=== PATIENT | male | born 1985 | race Caucasian/White ===

== ENCOUNTER 2019-07-29 02:00 | Outpatient (CLI) | payer OTHER, SELFPAY ==
--- NOTE | 2019-07-29 15:47 | DI.RAD_ITS ---
EXAM: XR FOOT LT COMPLETE INDICATION: [place] AUTH #[id number] LT FOOT PAIN M79.672, WEIGHT BEARING LT FOOT XRAY. COMPARISON: No exams were available for comparison TECHNIQUE: 2D digital imaging was performed. FINDINGS: Plantar arch is well maintained. There is minimal spurring at the Achilles insertion on the calcaneu s. There is an accessory navicular. The joint spaces are well maintained. IMPRESSION: No acute abnormality.
== END 2019-07-29 02:20 ==
PROVIDERS: Visit Provider Podiatrist Foot & Ankle Surgery
DX: M79.672 Pain in left foot (principal); M77.32 Calcaneal spur, left foot
CPT/HCPCS: 73630

== ENCOUNTER 2022-05-14 16:40 | Emergency (ER) | payer OTHER, SELFPAY ==
[2022-05-14 16:44] VITALS: BP 132/80; PULSE 86; RESP 20; TEMP 37; O2SAT 99
[2022-05-14 17:50] LABS: Abs Immature Grans 0.02 10^3/uL (0.0-0.06); Absolute Basophil Count 0.04 10^3/uL (0.0-0.2); Absolute Eosinophil Count 0.13 10^3/uL (0.0-0.7); Absolute Lymphocyte Count 2.71 10^3/uL (1.2-3.4); Absolute Monocyte Count 0.62 10^3/uL (0.1-0.8); Absolute Neutrophil Count 5.01 10^3/uL (1.2-6.7); Basophils % 0.5; Eosinophils % 1.5; HCT 41.4 % (40.0-50.0); Immature Grans % 0.2; Lymphocytes % 31.8; MCH 29.4 pg (27.0-33.0); MCHC 33.8 % (32.0-36.0); MCV 87 fL (80-95); MPV 11.7 fL (8.0-11.0); Monocytes % 7.3; Neutrophils % 58.7; Platelet Count 237 10^3/uL (130-400); RBC 4.77 10^6/uL (4.36-5.78); RDW 11.6 % (11.8-14.1); RDW-SD 36.6 fL; WBC 8.53 10^3/uL (4.4-10.8)
[2022-05-14 18:05] LABS: ALT 18 U/L (16-63); AST 17 U/L (15-37); Albumin 4.2 g/dL (3.4-5.0); Alkaline Phosphatase 49 U/L (46-116); BUN 13 mg/dL (7-18); Bilirubin, Total 1.7 mg/dL (0.2-1.0); CREATININE 0.9 mg/dL (0.70-1.30); Calcium 9.2 mg/dL (8.5-10.1); Chloride 102 mmol/L (98-107); Estimated GFR 112.81 (mL/min/1.73m2); Glucose 79 mg/dL (74-106); Potassium 4.1 mmol/L (3.5-5.1); Sodium 137 mmol/L (136-145); Total Protein 8.7 g/dL (6.4-8.2); Uric Acid 4.3 mg/dL (3.5-7.2)
--- NOTE | 2022-05-14 18:14 | ED.GENADUL_ITS ---
Discharge Plan Disposition Patient Disposition: HOME Condition: Stable Discharge Details Clinical Impression: Bilateral plantar fasciitis, Bilateral edema of lower extremity Primary Care Provider: Brayan Garcia ED Provider: Kimani Hill Home Meds and New Rx's Prescriptions: Continued diazepam [Valium] 10 mg tablet 10 mg PO ONCE PRN (Reason: premedication) Qty: 1 0RF Rx Instructions: Take 1 hour prior to procedure. Must have a stud driver tramadol 50 mg tablet 50 mg PO Q6H PRN (Reason: pain) Qty: 10 0RF infliximab [Remicade] 100 MG recon soln IV .Q 6 WEEKS Discharge Instructions Instructions: Plantar Fasciitis (ED), Edema (ED), Plantar Fasciitis Exercises (ED) Additional Instructions: If you develop any new or significant worsening of symptoms please feel free to return to the emergency department for reassessment. Your labs are otherwise nondiagnostic and please consider use of compression stockings along with monitoring sodium intake for your diet. Please follow-up with your primary care provider for further reassessment and testing as needed Referrals: Brayan Garcia [Primary Care Provider] - 1 week (If not if not improving) Discharge Data Discharge Date/Time-TO BE ENTERED AT DEPARTURE: 05/14/22 18:31 Medical Decision Making Patient presenting to the emergency department for chief complaint of bilateral foot pain with occasional swelling to lower extremities. Patient has significant past medical history of Crohn's disease but otherwise denies any other medical history. Patient does state approximately 1 month ago he changed shoes due to the chronic foot pain and has seen podiatry that recommended orthotics. He states that pain has not been improving but has recently noticed some swelling to his lower legs. Patient denies any cardiac or respiratory symptoms and states that swelling does improve with rest but pain does seem to be worse in the morning when he wakes up. Physical exam shows tenderness to the plantar aspects of the feet without bony prominence tenderness. Patient does have slight nonpitting edema above patient's boot line that is very mild in nature. Pulses are otherwise intact normal cap refill normal movement of feet. Patient has no calf or thigh pain. I suspect plantar fasciitis as cause of patient's pain and discomfort and discussed measures that he can do such as stretching or change in footwear that may help with this. Otherwise I did perform labs due to no specific direct cause for his edema. Labs were reviewed and CBC is unremarkable, CMP shows slightly elevated bilirubin otherwise normal LFTs, normal renal function sodium and potassium. Patient unable to provide urine specimen which I feel is okay. Patient was encouraged to follow-up with his primary care provider. Did discuss compression stockings and planter fasciitis boots that he can wear at night to help stretch his feet otherwise I see no emergent findings of concern at this time. After discussion of diagnosis and plan of care patient has no further needs, questions, or concerns and states clear understanding to return to the emergency department for any worsening symptoms. This documentation was generated using [employer] system, please disregard any oddities of phrase or misspellings. HPI General Mode of arrival: ambulatory . Date/Time Provider Initiated Documentation: 05/14/22 16:54 . Limitations to Documentation: no limitations . Information obtained by: patient and RN notes reviewed . History of Present Illness 36 year old M presents to the emergency department with the chief comp laint of Bilateral foot pain, described as moderate, Quality is described as aching, and is localized to the lower extremity. Patient started experiencing this month(s) and it has been constant. Movement improves symptom(s), Rest worsens symptoms . Patient did receive the following treatments prior to arrival, other (Acetaminophen) Related Data Home Medications Medication Instructions Recorded Confirmed infliximab 100 mg intravenous IV .Q 6 WEEKS 07/02/14 05/04/18 solution (Remicade) diazepam 10 mg tablet (Valium) 10 mg PO ONCE PRN premedication #1 05/04/18 05/04/18 tab tramadol 50 mg tablet 50 mg PO Q6H PRN pain #10 tabs 06/25/18 06/25/18 Previous Rx's Medication Instructions Recorded diazepam 10 mg tablet (Valium) 10 mg PO ONCE PRN premedication #1 05/04/18 tab tramadol 50 mg tablet 50 mg PO Q6H PRN pain #10 tabs 06/25/18 Allergies Allergy/AdvReac Type Severity Reaction Status Date / Time No Known Allergies Allergy Verified 05/04/18 11:10 General Stated Complaint: Orthopedic CONSTANTINE: 4 Review of Systems Constitutional Constitutional: Denies chills and Denies fever(s) Cardiovascular Cardiovascular: Denies chest pain, Denies syncope, Reports pedal edema, Reports leg edema and Denies dyspnea Respiratory Respiratory: Denies cough and Denies dyspnea Gastrointestinal Gastrointestinal: Denies abdominal pain, Denies diarrhea, Denies nausea and Denies vomiting Genitourinary Genitourinary: Denies oliguria Musculoskeletal Musculoskeletal: Reports as per HPI, Denies muscle cramps, Denies muscle weakness, Denies numbness and Denies tingling Integumentary/Breasts Skin/Breast: Denies erythema and Denies wounds Neurologic Neurologic: Denies syncope, Denies numbness and Denies tingling PFSH All Active Problems Bilateral plantar fasciitis (Acute) Bilateral edema of lower extremity (Acute) Medical History Crohn's disease Social History Smoking/Tobacco Use Status: Current-Occasional Smoking risk assessment performed?: Yes Drug use: Never Substance use type: does not use Exam Const General: cooperative, no acute distress and not ill appearing Orientation: alert, awake and oriented x3 Resp Effort & Inspection: normal respiratory effort, able to speak in complete sentences and no respiratory distress Auscultation: clear to auscultation bilaterally Cardio Rate: regular rate Rhythm: regular rhythm Heart Sounds: S1 normal and S2 normal Skin Rashes: rashes noted (Psoriasis bilateral lower extremities) Trauma: no lacerations or abrasions Neuro General: patient alert, patient awake, patient oriented x3, moves all extremities and no focal motor deficits Sensory Exam: no sensory deficits noted Extrem General: normal exam except as noted Right lower extremity: normal to inspection, edema Details: non-pitting and 1+ and foot Details: tenderness Location: of the plantar foot, toes with normal ROM, vascular exam Details: dorsalis pedis pulse present, posterior tibial pulse present and normal capillary refill, tendon exam Details: active flexion normal and active extension normal and motor-sensory exam Details: two point discrimination normal and light-touch normal; no ecchymosis Left lower extremity: normal to inspection, edema Details: non-pitting and 1+ and foot Details: tenderness Location: of the plantar foot, toes with normal ROM, vascular exam Details: dorsalis pedis pulse present, posterior tibial pulse present and normal capillary refill, tendon exam Details: active flexion normal and active extension normal and motor-sensory exam Details: two point discrimination normal and light-touch normal; no ecchymosis Course Vital Signs Vital signs: Vital Signs Temperature 37.0 C 05/14/22 16:44 Pulse 86 05/14/22 16:44 Respiratory Rate 20 05/14/22 16:44 Blood Pressure 132/80 05/14/22 16:44 Pulse Oximetry 99 05/14/22 16:44 Temperature 37.0 C 05/14/22 16:44 Temperature Source Oral 05/14/22 16:44 Pulse 86 05/14/22 16:44 Respiratory Rate 20 05/14/22 16:44 Respiratory Effort Non-Labored 05/14/22 16:51 Blood Pressure 132/80 05/14/22 16:44 Blood Pressure Position Supine 05/14/22 16:44 Pulse Oximetry 99 05/14/22 16:44 Oxygen Delivery Method Room Air 05/14/22 16:44 Oxygen Flow Rate 0 05/14/22 16:44 Pain Level 4 05/14/22 16:44 Lab/Test Results Lab/Test Results: Laboratory Tests Range/Units 05/14/22 05/14/22 17:40 17:40 WBC (4.4-10.8) 10^3/uL 8.53 RBC (4.36-5.78) 10^6/uL 4.77 Hgb (13.5-17.5) g/dL 14.0 Hct (40.0-50.0) % 41.4 MCV (80-95) fL 87 MCH (27.0-33.0) pg 29.4 MCHC (32.0-36.0) % 33.8 RDW (11.8-14.1) % 11.6 L Plt Count (130-400) 10^3/uL 237 MPV (8.0-11.0) fL 11.7 H Immature Gran % 0.2 Neutrophils % 58.7 Lymphocytes % 31.8 Monocytes % 7.3 Eosinophils % 1.5 Basophils % 0.5 Nucleated RBC % (0.0-0.3) % 0.0 Absolute Neutrophils (1.2-6.7) 10^3/uL 5.01 Absolute Lymphocytes (1.2-3.4) 10^3/uL 2.71 Absolute Monocytes (0.1-0.8) 10^3/uL 0.62 Absolute Eosinophils (0.0-0.7) 10^3/uL 0.13 Absolute Basophils (0.0-0.2) 10^3/uL 0.04 Sodium (136-145) mmol/L 137 Potassium (3.5-5.1) mmol/L 4.1 Chloride (98-107) mmol/L 102 Carbon Dioxide (21.0-32.0) mmol/L 30.0 Anion Gap (3-11) mmol/L 5.0 BUN (7-18) mg/dL 13 Creatinine (0.70-1.30) mg/dL 0.9 Est GFR (CKD-EPI 2020) (mL/min/1.73m2) 112.81 Glucose (74-106) mg/dL 79 Uric Acid (3.5-7.2) mg/dL 4.3 Calcium (8.5-10.1) mg/dL 9.2 Total Bilirubin (0.2-1.0) mg/dL 1.7 H AST (15-37) U/L 17 ALT (16-63) U/L 18 Alkaline Phosphatase (46-116) U/L 49 Total Protein (6.4-8.2) g/dL 8.7 H Albumin (3.4-5.0) g/dL 4.2
== END 2022-05-14 18:31 | disposition home or self-care (01) ==
PROVIDERS: Emergency Provider Nurse Practitioner Family; PCP Internal Medicine
DX: M72.2 Plantar fascial fibromatosis (principal)
CPT/HCPCS: 80053; 99282; 84550; 85025; 99284

== ENCOUNTER 2023-04-01 15:31 | Emergency (ER) | payer OTHER, SELFPAY ==
[2023-04-01 15:37] VITALS: BP 114/93; PULSE 79; RESP 18; TEMP 37.1; O2SAT 100
--- NOTE | 2023-04-03 13:21 | ED.GENADUL ---
History of Present Illness - General Chief complaint: Orthopedic - Related Data infliximab 100 mg intravenous solution (Remicade) IV .Q 6 WEEKS 07/02/14 diazepam 10 mg tablet (Valium) 10 mg PO ONCE PRN premedication #1 tab 05/04/18 tramadol 50 mg tablet 50 mg PO Q6H PRN pain #10 tabs 06/25/18 colchicine 0.5 mg tablet 0.6 mg PO 1XD 04/01/23 doxycycline hyclate 100 mg tablet 100 mg PO 1XD 04/01/23 Allergies Allergy/AdvReac Type Severity Reaction Status Date / Time No Known Allergies Allergy Verified 05/04/18 11:10
== END 2023-04-01 16:20 | disposition other institution (70) ==
PROVIDERS: PCP Internal Medicine
DX: Z53.21 Procedure and treatment not carried out due to patient leaving prior to being seen by health care provider (principal)

== ENCOUNTER → 2023-04-01 17:49 | Outpatient (CLI) | payer OTHER, SELFPAY ==
--- NOTE | 2023-04-01 | DI.RAD_ITS ---
Exam(s) XR FINGER RT MIDDLE EXAM: XR FINGER RT MIDDLE CLINICAL HISTORY: Heavy piece of metal crushed right middle finger. TECHNIQUE: 2D digital imaging was performed of the right finger. Three views were obtained. PA/AP, oblique, and lateral views were obtained. COMPARISON: No exams were available for comparison FINDINGS: BONES: There is an acute comminuted fracture involving the distal aspect of the distal phalanx of the middle finger. The fracture involves the distal diaphysis and the terminal tuft with minimal displa cement of the fracture fragments. No bony destructive lesion is seen. JOINTS: No dislocation present. SOFT TISSUE: There is soft tissue swelling of the 3rd finger. IMPRESSION: Acute comminuted fracture of the distal phalanx of the middle finger with associated soft tissue swel ling. DATA REPOSITORY: RADIATION DOSE DELIVERED:
--- NOTE | 2023-04-01 18:07 | DI.VRAD_ITS ---
PROCEDURE INFORMATION: Exam: XR Right Finger(s) Exam date and time: 04/01/2023 17:58 Age: 37 years old Clinical indication: Injury or trauma; Other: Heavy piece of metal crushed right middle finger TECHNIQUE: Imaging protocol: Radiologic exam of the right fingers. Views: Minimum 2 views. COMPARISON: No relevant prior studies available. FINDINGS: Bones/joints: Acute fracture of the 3rd distal phalanx involving diaphysis and tuft with minor radial distraction of dominant fracture fragments. No dislocation. Soft tissues: Soft tissue swelling surrounding the fracture site. IMPRESSION: Acute fracture of the 3rd distal phalanx involving diaphysis and tuft with minor radial distraction of dominant fracture fragments. Dictated and Authenticated by: Sudha Sahu MD. Ordering:GAGE Garvey MD
== END ==
PROVIDERS: PCP Internal Medicine; Visit Provider Physician Assistant Medical
DX: S62.632A Displaced fracture of distal phalanx of right middle finger, initial encounter for closed fracture (principal); X58.XXXA Exposure to other specified factors, initial encounter; S67.192A Crushing injury of right middle finger, initial encounter
CPT/HCPCS: 73140

== ENCOUNTER 2023-05-12 14:09 | Outpatient (CLI) | payer OTHER, SELFPAY ==
--- NOTE | 2023-05-12 13:30 | DI.RAD_ITS ---
Exam(s) XR FINGER RT MIDDLE EXAM: XR FINGER RT MIDDLE CLINICAL HISTORY: fracture follow up. TECHNIQUE: 2D digital imaging was performed of the right finger. Two views were obtained. PA/AP an d lateral views were obtained. COMPARISON: CR,XR XR FINGER RT MIDDLE from 04/01/2023 FINDINGS: BONES: There has been no significant change in alignment of the comminuted fracture involving phalanx of the 3rd finger. No new fracture is seen. No bony destructive lesion is seen. JOINTS: No dislocation present. The joint spaces are well maintained. SOFT TISSUE: Normal. IMPRESSION: Stable fracture of the distal phalanx of the 3rd finger. DATA REPOSITORY: RADIATION DOSE DELIVERED:
== END 2023-05-12 14:10 | disposition home or self-care (01) ==
LOC: DIORS 14:10
PROVIDERS: PCP Internal Medicine; Referring Provider Internal Medicine; Visit Provider Physician Assistant
DX: S62.632D Displaced fracture of distal phalanx of right middle finger, subsequent encounter for fracture with routine healing (principal); X58.XXXD Exposure to other specified factors, subsequent encounter
CPT/HCPCS: 73140

== ENCOUNTER 2023-11-14 19:46 | Emergency (ER) | payer OTHER, SELFPAY ==
--- NOTE | 2023-11-14 19:48 | ED.GENADUL_ITS ---
Discharge Plan Disposition Patient Disposition: Home Condition: Good Discharge Details Clinical Impression: Calculus of ureterovesical junction (UVJ) Primary Care Provider: Brayan Garcia ED Provider: Nelson Garcia Meds and New Rx's Prescriptions: Continued Entyvio Pen 108 mg/0.68 mL pen injector 108 mg subcut Q2W colchicine (cardiac) 0.5 mg Tablet 0.6 mg PO 1XD Discharge Instructions Instructions: Renal Colic (ED) Additional Instructions: You were seen for right-sided abdominal pain and groin pain which is related to a kidney stone which is passed all the way down to the opening of the ureter into the bladder. It is small and if has not already passed should pass very soon. Strain your urine as we discussed. Drink plenty of fluids to stay hydrated. You may use acetaminophen or ibuprofen for discomfort. If you have not passed the stone in the next couple days please follow-up with PCP. You should return to the ED for any fever, worsening/persistent pain, persistent vomiting, other concerns. HPI General Mode of arrival: ambulatory . Date/Time Provider Initiated Documentation: 11/14/23 19:48 . Limitations to Documentation: no limitations . Information obtained by: patient . HPI Narrative: Patient presents to ED with acute onset of right lower quadrant pain radiating into the groin and down right inner thigh. Patient reports that he had just had a bowel movement and it had some discomfort. The pain however did not start till a few minutes later. It is described as sharp and severe. He went back to the bathroom but was unable to urinate or have bowel movement. He became diaphoretic and vomited. He was pacing and hunched over unable to get comfortable. He had a little bit of back discomfort. Once he arrived here pain actually seem to improve on its own and now just has some residual discomfort in the groin. He does have a prior history of Crohn's but has been stable on medications. He has a prior history of bowel resection. Was fine earlier in the day with no symptoms whatsoever. Related Data Home Medications Medication Instructions Recorded Confirmed colchicine (cardiac) 0.5 mg tablet 0.6 mg PO 1XD 04/01/23 11/14/23 vedolizumab 108 mg/0.68 mL 108 mg subcut Q2W 05/12/23 11/14/23 subcutaneous pen injector (Entyvio Pen) Allergies Allergy/AdvReac Type Severity Reaction Status Date / Time dapsone Allergy Intermediate jaundice Verified 06/30/23 14:48 General CONSTANTINE: 3 Review of Systems Narrative: Per HPI Exam Narrative Exam Narrative: Const: WDWN male in NAD. VS per triage. HEENT: NC/AT. Normal facial exam. Eyes: Normal conjunctiva and sclera. Neck: Supple. Trachea midline. Lungs: Normal respiratory effort. Lungs are clear. Cor: RRR without murmur. Good radial pulses. GI: Soft and ND. Minimal tenderness in RLQ without guarding or rebound. : No hernias. No testicular tenderness. No groin adenopathy. Neuro: A+O x 3. Normal speech, mentation, gait. Cranial nerves II - XII grossly intact. No gross motor or sensory deficit. Ext: No C/C/E. Medical Decision Making Patient presenting to ED with acute onset right lower quadrant pain radiating into the groin and inner thigh on the right. Pain described as sharp and severe with associated diaphoresis and vomiting. Has improved significantly without intervention once he arrived here in the ED. His exam is unremarkable. There is no evidence of testicular torsion or tenderness. There is no hernia. Suspect this is related to renal colic and possible passage of kidney stone. IV established and fluids given. Laboratory studies, urinalysis, stone study ordered. Patient's urinalysis does have blood in it. His white count is normal. His kidney function is normal. Potassium a little low. Bilirubin a little high but has been and LFTs otherwise normal. CT scan with a 2 mm UVJ stone on the inner aspect of the junction and if it has not already passed will soon. Patient is in no distress or pain at this time. Will not start tamsulosin given the tiny nature of the stone and its position. Recommend pushing fluids, straining urine, using ibuprofen or acetaminophen as needed. May follow-up with PCP in the next couple of days if he does not pass the stone. Return precautions provided. Lab Data Lab results reviewed: Yes I reviewed the patient's lab results. PFSH All Active Problems (Updated 11/14/23 @ 22:15 by Nelson Garcia MD) Calculus of ureterovesical junction (UVJ) (Acute) Fracture of distal phalanx of right middle finger (Acute 03/31/23) Medical History Crohn's disease Surgical History History of bowel resection Social History Smoking/Tobacco Use Status: Current-Occasional Smoking risk assessment performed?: Yes Drug use: Never Substance use type: does not use Do you feel safe at home: Yes Do you feel safe in your relationship?: Yes
[2023-11-14 19:49] VITALS: BP 135/91; PULSE 70; RESP 15; TEMP 36.6; O2SAT 100
[2023-11-14 19:52] VITALS: BP 135/91; PULSE 70; RESP 15; TEMP 36.6; O2SAT 100
[2023-11-14 20:16] LABS: Bilirubin Small (Negative); Blood Moderate (Negative); Clarity Clear (Clear); Glucose Negative (Negative); Ketones Trace mg/dL (Negative); Leukocyte Esterase Negative (Negative); Nitrite Negative (Negative); Specific Gravity 1.025 (1.005-1.025); Urobilinogen 0.2 mg/dL (Up to 0.2)
[2023-11-14 20:24] LABS: Bacteria Negative HPF (Negative); C & S Indicated? No; Crystals Negative HPF (Negative); Epithelial Cells Negative HPF (Negative); Mucus Heavy (Negative); RBC 20-50 HPF (0-2); WBC 0-2 HPF (0-5)
[2023-11-14 20:29] LABS: Abs Immature Grans 0.02 10^3/uL (0.0-0.06); Absolute Basophil Count 0.03 10^3/uL (0.0-0.2); Absolute Eosinophil Count 0.14 10^3/uL (0.0-0.7); Absolute Monocyte Count 0.58 10^3/uL (0.1-0.8); Absolute Neutrophil Count 3.37 10^3/uL (1.2-6.7); Basophils % 0.5 %; Eosinophils % 2.1 %; HCT 41.5 % (40.0-50.0); HGB 14.5 g/dL (13.5-17.5); Immature Grans % 0.3 %; Lymphocytes % 37.7 %; MCH 29.5 pg (27.0-33.0); MCHC 34.9 % (32.0-36.0); MCV 85 fL (80-95); MPV 11.4 fL (8.0-11.0); Monocytes % 8.7 %; Neutrophils % 50.7 %; Platelet Count 218 10^3/uL (130-400); RBC 4.91 10^6/uL (4.36-5.78); RDW 11.9 % (11.8-14.1); RDW-SD 35.9 fL; WBC 6.64 10^3/uL (4.4-10.8)
[2023-11-14] MEDS: Lactated Ringers 1,000 ML 1000 ML IV (20:30)
--- NOTE | 2023-11-14 20:39 | DI.CT_ITS ---
Exam(s) CT RENAL COLIC WO EXAM: CT RENAL COLIC WO CLINICAL HISTORY: right abd/groin pain. TECHNIQUE: Imaging Protocol: Axial computed tomography images with coronal and sagittal reformatted images were created and reviewed. CONTRAST MATERIAL: Noncontrast COMPARISON: No exams were available for comparison FINDINGS: ABDOMEN: Lung Bases: Normal where visualized. Liver: Enlarged with moderate hepatic steatosis. No measurable mass. Gallbladder and biliary tract: 1 or 2 small stones in dependent portion. No wall thickening. No carmen iary dilatation. Pancreas: Normal density, no calcifications or inflammatory process. Spleen: Normal. Kidneys: Normal size, contour and axis.Mild right hydronephrosis secondary to a 2 millimeter calculus at the right ureterovesical junction. No masses seen. Adrenal glands: No masses seen. Abdominal Aorta: Abdominal portion non-dilated. Soft tissues: Unremarkable. PELVIS: Bladder: Nearly empty. Not well evaluated. No visible mass. Bowel: No obstruction or bowel wall thickening. Sigmoid anastomosis is unremarkable. Reproductive: Unremarkable. Peritoneal cavity: No ascites, collection or mesenteric inflammatory response. Bones: Unremarkable for age.. IMPRESSION: Mild right hydronephrosis secondary to 2 millimeter calcification at the ureterovesical junction. RADIATION DOSE DELIVERED: Total DLP DATA REPOSITORY: All CT scans at this facility are submitted to the National Radiology Data Registry (NRDR) Dose Index Registry (DIR) with the [employer] (A[employer]). RADIATION OPTIMIZATION: All CT scans at this facility use at least one of these dose optimization te chniques: automated exposure control; mA and/or kV adjustment per patient size (includes targeted exa ms where dose is matched to clinical indication); or iterative reconstruction.
[2023-11-14 20:44] LABS: ALT 52 U/L (16-63); AST 27 U/L (15-37); Albumin 4.4 g/dL (3.4-5.0); Alkaline Phosphatase 53 U/L (46-116); Anion Gap 11.3 mmol/L (3-11); BUN 13 mg/dL (7-18); Bilirubin, Total 1.6 mg/dL (0.2-1.0); CO2 25.7 mmol/L (21.0-32.0); Calcium 8.8 mg/dL (8.5-10.1); Chloride 105 mmol/L (98-107); Estimated GFR 98.18 (mL/min/1.73m2); Glucose 93 mg/dL (74-106); Lipase 34 U/L (16-77); Potassium 3.2 mmol/L (3.5-5.1); Sodium 142 mmol/L (136-145); Total Protein 7.7 g/dL (6.4-8.2)
--- NOTE | 2023-11-14 22:09 | DI.VRAD_ITS ---
PROCEDURE INFORMATION: Exam: CT Abdomen And Pelvis Without Contrast Exam date and time: 11/14/2023 20:35 Age: 38 years old Clinical indication: Abdominal pain; Localized; Right lower quadrant (rlq); Prior surgery; Surgery date: 6+ months; Surgery type: Bowel resection in 2004 TECHNIQUE: Imaging protocol: Computed tomography of the abdomen and pelvis without contrast. Radiation optimization: All CT scans at this facility use at least one of these dose optimization techniques: automated exposure control; mA and/or kV adjustment per patient size (includes targeted exams where dose is matched to clinical indication); or iterative reconstruction. COMPARISON: No relevant prior studies available. FINDINGS: Liver: Fatty liver with no gross masses on noncontrast imaging. Focal fatty sparing in the liver. Gallbladder and bile ducts: No calcified stones. No ductal dilation. Pancreas: No gross pathology in the pancreas on noncontrast imaging. Spleen: No splenomegaly or focal lesions. Adrenal glands: No mass. Kidneys and ureters: 2 mm calculus, inner aspect of the right ureteral vesicular junction causing mild right hydronephrosis. No right nephrolithiasis. No left nephrolithiasis. No left hydronephrosis. Stomach and bowel: Sigmoid colon anastomosis, satisfactory appearance. Submucosal fat deposition in the colon, likely habitus and or diet related. No significant diverticular disease of the colon. No gross pathology in the small bowel without IV contrast. Appendix: No evidence of appendicitis. Intraperitoneal space: No free air. No significant fluid collection. Vasculature: No abdominal aortic aneurysm. Lymph nodes: A prominent portacaval lymph node is likely due to the fatty liver. Urinary bladder: Bladder wall is upper limits of normal. Reproductive: Unremarkable as visualized. Bones/joints: No acute fracture. Soft tissues: No suspicious lesions. IMPRESSION: 1. 2 mm calculus, inner aspect of the right ureteral vesicular junction causing mild right hydronephrosis. 2. Sigmoid colon anastomosis, satisfactory appearance. Dictated and Authenticated by: Sudha Sahu MD. Ordering:LEOLA Damon MD
[2023-11-14 22:46] VITALS: BP 116/60; PULSE 80; RESP 16; TEMP 36.8; O2SAT 98
== END 2023-11-14 22:45 | disposition home or self-care (01) ==
PROVIDERS: Emergency Provider Emergency Medicine; PCP Internal Medicine
DX: N13.2 Hydronephrosis with renal and ureteral calculous obstruction (principal); F17.200 Nicotine dependence, unspecified, uncomplicated
CPT/HCPCS: 80053; 83690; 96360; 99284; 74176; 81003; 81015; 85025

== ENCOUNTER 2024-10-07 00:46 | Outpatient (CLI) | payer OTHER, SELFPAY ==
--- NOTE | 2024-10-07 09:42 | DI.RAD_ITS ---
Exam(s) XR KNEE RT 3V AP,LAT,LINDSAY XR KNEE LT 3V AP,LAT,LINDSAY EXAM: XR KNEE LT 3V AP,LAT,LINDSAY CLINICAL HISTORY: Arthritis, M13.80; VES #[id number]. TECHNIQUE: 2D digital imaging was performed. Three views of both knees. COMPARISON: CR XR KNEE RT 3V AP,LAT,LINDSAY from 10/07/2024 FINDINGS: BONES: No acute fracture is present. No bony destructive lesion is seen. JOINTS: The knee is normally aligned. No joint effusion is seen. The joint spaces are maintained. N o significant periarticular spurring. SOFT TISSUE: Normal. IMPRESSION: Normal radiographs of the both knees. DATA REPOSITORY: RADIATION DOSE DELIVERED:
--- NOTE | 2024-10-07 09:42 | DI.RAD_ITS ---
Exam(s) XR HIP RT 1V XR HIP LT 1V EXAM: XR HIP LT 1V CLINICAL HISTORY: ARTHRITIS, M13.80,VES#[id number]. TECHNIQUE: 2D digital imaging was performed. Two views. AP views of both hips. COMPARISON: CR XR HIP RT 1V from 10/07/2024 FINDINGS: BONES: No acute fracture is present. No bony destructive lesion is seen. JOINTS: No dislocation present. The SI joints and pubic symphysis are intact. The joint spaces are m aintained. No significant degenerative changes. SOFT TISSUE: Normal. IMPRESSION: Unremarkable radiographs of the hips. DATA REPOSITORY: RADIATION DOSE DELIVERED:
--- NOTE | 2024-10-07 09:42 | DI.RAD_ITS ---
Exam(s) XR HIP RT 1V XR HIP LT 1V EXAM: XR HIP LT 1V CLINICAL HISTORY: ARTHRITIS, M13.80,VES#[id number]. TECHNIQUE: 2D digital imaging was performed. Two views. AP views of both hips. COMPARISON: CR XR HIP RT 1V from 10/07/2024 FINDINGS: BONES: No acute fracture is present. No bony destructive lesion is seen. JOINTS: No dislocation present. The SI joints and pubic symphysis are intact. The joint spaces are m aintained. No significant degenerative changes. SOFT TISSUE: Normal. IMPRESSION: Unremarkable radiographs of the hips. DATA REPOSITORY: RADIATION DOSE DELIVERED:
--- NOTE | 2024-10-07 09:42 | DI.RAD_ITS ---
Exam(s) XR KNEE RT 3V AP,LAT,LINDSAY XR KNEE LT 3V AP,LAT,LINDSAY EXAM: XR KNEE LT 3V AP,LAT,LINDSAY CLINICAL HISTORY: Arthritis, M13.80; VES #[id number]. TECHNIQUE: 2D digital imaging was performed. Three views of both knees. COMPARISON: CR XR KNEE RT 3V AP,LAT,LINDSAY from 10/07/2024 FINDINGS: BONES: No acute fracture is present. No bony destructive lesion is seen. JOINTS: The knee is normally aligned. No joint effusion is seen. The joint spaces are maintained. N o significant periarticular spurring. SOFT TISSUE: Normal. IMPRESSION: Normal radiographs of the both knees. DATA REPOSITORY: RADIATION DOSE DELIVERED:
== END 2024-10-07 01:06 ==
LOC: DI 00:46
PROVIDERS: PCP Internal Medicine; Visit Provider Chiropractor
DX: M13.851 Other specified arthritis, right hip (principal); M13.852 Other specified arthritis, left hip; M13.862 Other specified arthritis, left knee; M13.861 Other specified arthritis, right knee
CPT/HCPCS: 73562; 73501